=== PATIENT | female | born 1945 | race American Indian/Alaskan Native ===

== ENCOUNTER 2016-10-21 09:22 | Inpatient (IN) | payer OTHER, MEDICARE ==
[2016-10-21 09:35] VITALS: BMI 29.0
[2016-10-21] MEDS ORDERED: Thrombin Topical 5,000 IU Spray Kit ONE (12:52)
[2016-10-21] MEDS ORDERED: Absorbable Gelatin Sponge Size 100 ONE (12:52)
[2016-10-21] MEDS ORDERED: Bacitracin Ointment 30 GM TUBE ONE (12:52)
[2016-10-21] MEDS ORDERED: Bupivacaine 0.5% Inj(30mL) ONE (13:11)
[2016-10-21] MEDS ORDERED: Morphine 1 mg/ml preservative-free Inj(Duramorph) ONE (13:11)
[2016-10-21] MEDS ORDERED: EPINEPHrine 1 mg/ml (1:1000) Inj ONE (13:11)
[2016-10-21] MEDS ORDERED: Sodium Chloride 0.9% 20 ML IV ONE (13:11)
[2016-10-21] MEDS ORDERED: Propofol 10 mg/ml Inj (20 ML) ONE (13:21)
[2016-10-21] MEDS ORDERED: ePHEDrine 50 mg/ml Inj ONE (13:21)
[2016-10-21] MEDS ORDERED: Midazolam 2 MG/2 ML VIAL ONE (13:21)
[2016-10-21] MEDS ORDERED: Rocuronium 10 mg/ml (5 ml) ONE ×2 (13:21→14:22)
[2016-10-21] MEDS ORDERED: Lidocaine 4% (Laryng-O-Jet) Kit MM ONE (13:22)
[2016-10-21] MEDS ORDERED: Succinylcholine 200 mg/10 ml Inj IV ONE (13:22)
[2016-10-21] MEDS ORDERED: Lactated Ringer's 1,000 ML IV ONE ×3 (13:30→18:00)
[2016-10-21] MEDS ORDERED: Etomidate 20 mg/10ml Inj IV ONE (13:42)
--- NOTE | 2016-10-21 14:25 | RAD ---
PROCEDURE: Bilateral knee radiographs. HISTORY: Preop COMPARISON: None. FINDINGS: BONES: No acute fracture. Severe tricompartmental degenerative changes right knee. Less severe degenerative changes primarily affecting left medial compartment and patellofemoral joint. JOINTS: No evident loose bodies. JOINT EFFUSION: Unilateral, right suprapatellar effusion. OTHER FINDINGS: Bilateral varus deformity. IMPRESSION: Severe bilateral degenerative changes right greater than left.
[2016-10-21] MEDS ORDERED: Esmolol 100 mg/10ml Inj IV ONE (14:35)
[2016-10-21] MEDS ORDERED: Neostigmine Methylsulfate 3mg/3ml Syringe IV ONE (15:06)
[2016-10-21] MEDS ORDERED: Sodium Chloride 0.9% Inj (10mL) IV ONE (15:33)
--- NOTE | 2016-10-21 16:34 | PCM.SURG1 ---
Surgeon's Initial Post Op Note - Surgeon's Notes Surgeon: Dr. Charlie Ahn Education Consultant: Julianna Graham PA-C Type of Anesthesia: General Endo Anesthesia Administered By: Dr. Clinton/Dr. Price Pre-Operative Diagnosis: Advanced Osteoarthritis of Right Knee/Knee Contracture Operative Findings: see operative note Post-Operative Diagnosis: same Operation Performed: Right Total Knee Replacement (Exactech) Specimen/Specimens Removed: bone Estimated Blood Loss: EBL {In ML}: 100 Drains Used: No Drains Post-Op Condition: Good Date of Surgery/Procedure: 10/21/16 Time of Surgery/Procedure: 01:30
[2016-10-21] MEDS ORDERED: Lactated Ringer's 1,000 ML IV SCH (16:45)
[2016-10-21] MEDS ORDERED: DiphenhydrAMINE 50 mg/ml Inj IVP PRN (16:46)
[2016-10-21] MEDS ORDERED: HYDROmorphone 0.5 mg/0.5 ml ISec IVP PRN (16:46)
--- NOTE | 2016-10-21 18:31 | RAD ---
PROCEDURE: Right Knee Radiographs. HISTORY: post op right TKR COMPARISON: Preoperative study 10/21/2016 FINDINGS: BONES: Satisfactory position alignment of components right TKA. JOINTS: Expected status satisfactory postoperative findings. JOINT EFFUSION: Air/fluid identified in the suprapatellar space OTHER FINDINGS: None. IMPRESSION: Satisfactory postoperative status.
--- NOTE | 2016-10-21 20:46 | OP ---
PROCEDURE DATE: 10/21/2016 PROCEDURE DATE: 10/21/2016. ATTENDING SURGEON: Charlie Ahn MD METAL CUTTER: Julianna Graham PA-C PREOPERATIVE DIAGNOSIS: Right knee osteoarthritis. POSTOPERATIVE DIAGNOSIS: Right knee osteoarthritis. PROCEDURE: Right total knee replacement. IMPLANTS SIZE: Exactech size 2 femur, size 4 stemmed tibial baseplate, size 13-mm polyethylene inse rt, 32-mm patella button. ANESTHESIA TYPE: General. ESTIMATED BLOOD LOSS: 50 mL. COMPLICATIONS: None. HISTORY: Patient with prolonged history of right knee pain progressively getting worse despite exten sive conservative management, which included activity modification, injections, anti-inflammatory mod ification and physical therapy. X-rays had revealed advanced arthritis. Patient was indicated for to shay knee replacement due to continued pain and limited mobility. I had a detailed discussion with the patient in the office explaining the nature of the surgery, alternatives of surgery, risks and benef its, rehabilitation protocol and surgical markings. Risks of surgery include but not limited to cont inued pain, lack of motion, infection, vascular injury, DVT/PE, nerve injury including peroneal nerve dysfunction, reflex sympathetic dystrophy, compartment syndrome, unforeseen medical and/or anesthesi a complications, limb loss, and even . The patient expressed an understanding of the risks and possible benefits of the procedure, and is also aware of the alternatives to surgery. PROCEDURE: The patient was transported to the operating room and placed in the supine position, gene ral anesthesia was obtained and examined under anesthesia. Effusion 1+, flexion contracture of 20, f lexion of 90, stable to varus and valgus stress. Planned tibial cut was made with power saw, using extra-medullary guide, perpendicular to mechanical axis of the tibia. After the cut was made, the alignment was also checked and was found to be appropr iate. Next, the knee was placed into 90 degrees of flexion. A drill hole was made within the femora l notch anterior to PCL insertion for placement of intramedullary femoral khadra. Intramedullary femora l khadra was inserted within the femoral canal and planned distal femoral cut was made. After the cut, k nee was brought into full extension. Spacer blocks were used to check the extension balancing both in full extension and 30 degrees of flexion. It was found that a size 13-mm trial spacer block allowed full extension with symmetric varus and valgus balancing. Next we proceed with Patella resurfacing. Patella width was found to [place] Patella width was 22-mm. Using the free-hand technique the arthritic patella surface was resected. Patella was sized using the guide and it was noted that the patella button size was 32-mm Patella dome button would be appropria te for the patient. Next the size of femoral component was determined using the posterior referencing guide. It was note d that a size 2 femur would be appropriate for this patient without causing any significant notching. A 4 x 1 cutting block was placed and flexion gap balancing was checked. The flexion gap was found t o be symmetric to the extension gap. Anterior and posterior condyle, anterior and posterior chamfer c uts were made. Next, appropriate size box cut for femoral component was prepared using the guide. The femoral trial component was impacted onto the distal femur. Appropriate size tibial trial compone nt was also placed on the cut surface of the tibia. Using the drill and punch, keel for tibial implan t was prepared. Trial tibial tray was secured onto the tibia using pins. Different size trial polyeth ylene inserts were secured on to the trial tibial tray to critically assess the following parameters: Full range of motion, extension and flexion gap balancing, mid-flexion stability, anterior and poste rior drawer, and patellar tracking. All parameter were found to be satisfactory with a size 13-mm brent yethylene insert. During this procedure, I was assisted by Julianna Graham PA-C, who assisted in positioning the patient on the operating room table as well as transferring the patient from the operating room tabl e to the recovery room stretcher. In addition, Julianna Graham PA-C, assisted me during the a ctual operative procedure by positioning, protecting critical neurovascular structures, exposure of t he joint, and proper positioning of the implants. The presence of Julianna Graham PA-C, as my operative assistant health educator, was medically necessary to ensure the utmost safety of the patient in the pre, i ntra-, and post-operative periods. Due to the patient's previous procedure performed in this area, this procedure was more difficult pepe n a standard knee arthroscopy. This required extra time during prepping and draping, as well as an e xtended operative time. Because of the added complexity of the revision nature of this procedure, th e length of the case was prolonged by 20%. Charlie Ahn MD cc: [id number] TT: 10/21/2016 20:45:32 dn
[2016-10-22] MEDS: ceFAZolin 1 GM in Sodium Chloride 0.9% 100 ML IVPB SCH ×2 (01:25→12:04)
--- NOTE | 2016-10-22 07:05 | CP.PCM.HP ---
History of Present Illness - History of Present Illness History of Present Illness: Pt was admitted s/p right knee replacement surgery yesterday today is POD#1. Pt was seen and examined at bedside after physical therapy pain is controlled. does not have any complaints. denies sob, abdominal pain, numbness, weakness, tingling or changes in vision. She is able to move her toes and is put pressure on her right lower extremity Present on Admission - Present on Admission Any Indicators Present on Admission: No Review of Systems - Review of Systems All systems: reviewed and no additional remarkable complaints except Review of Systems: Per HPI Past Patient History - Past Medical History & Family History Past Medical History?: Yes - Past Social History Smoking Status: Former Smoker - CARDIAC Hx Cardiac Disorders: Yes Hx Hypertension: Yes Hx Peripheral Vascular Disease: Yes - PULMONARY Hx Respiratory Disorders: Yes Hx Emphysema: Yes - NEUROLOGICAL Hx Neurological Disorder: No - HEENT Hx HEENT Problems: Yes Hx Cataracts: Yes - RENAL Hx Chronic Kidney Disease: No - ENDOCRINE/METABOLIC Hx Endocrine Disorders: No - HEMATOLOGICAL/ONCOLOGICAL Hx Blood Disorders: No Hx Blood Transfusions: Yes Hx Blood Transfusion Reaction: No - INTEGUMENTARY Hx Dermatological Problems: No - MUSCULOSKELETAL/RHEUMATOLOGICAL Hx Musculoskeletal Disorders: Yes Hx Arthritis: Yes - GASTROINTESTINAL Hx Gastrointestinal Disorders: Yes Hx Gastritis: Yes - GENITOURINARY/GYNECOLOGICAL Hx Genitourinary Disorders: No - PSYCHIATRIC Hx Psychophysiologic Disorder: No - SURGICAL HISTORY Hx Surgeries: Yes Other/Comment: HYSTERECTOMY;CARPAL TUNNEL-RIGHT;PLASTIC SURGERY - ANESTHESIA Hx Anesthesia: Yes Hx Anesthesia Reactions: No Hx Malignant Hyperthermia: No Meds Allergies/Adverse Reactions: Allergies Allergy/AdvReac Type Severity Reaction Status Date / Time No Known Allergies Allergy Verified 09/12/16 15:45 Physical Exam - Constitutional Appears: Non-toxic, No Acute Distress - Head Exam Head Exam: NORMOCEPHALIC - Eye Exam Eye Exam: Normal appearance, PERRL Pupil Exam: NORMAL ACCOMODATION - ENT Exam ENT Exam: Mucous Membranes Moist - Neck Exam Neck exam: Positive for: Full Rom. Negative for: Tenderness, Thyromegaly - Respiratory Exam Respiratory Exam: Clear to Auscultation Bilateral, NORMAL BREATHING PATTERN. absent: Rhonchi, Wheezes - Cardiovascular Exam Cardiovascular Exam: REGULAR RHYTHM, +S1, +S2 - GI/Abdominal Exam GI & Abdominal Exam: Normal Bowel Sounds, Soft. absent: Tenderness - Extremities Exam Extremities exam: Negative for: calf tenderness, pedal edema Additional comments: right knee neatly dressed, no discharge noted - Neurological Exam Neurological exam: Alert, CN II-XII Intact, Oriented x3 Results - Vital Signs Recent Vital Signs: Last Vital Signs Temp 99 F 10/22/16 05:00 Pulse 108 H 10/22/16 05:00 Resp 16 10/22/16 05:00 BP 133/81 10/22/16 05:00 Pulse Ox 95 10/22/16 05:00 - Labs Result Diagrams: 10/22/16 09:05 10/22/16 09:05 Labs: Laboratory Results - last 24 hr 10/21/16 10/21/16 14:00 14:17 Blood Type O POSITIVE Blood Type Confirm O POSITIVE Antibody Screen Negative BBK History Checked No verified bt Assessment & Plan - Assessment and Plan (Free Text) Assessment: 70 y/o female with hypertension admitted s/p right knee replacement surgery POD# 1 Plan: 1. Right Knee replacement surgery POD#1 pain management as ordered ancef as ordered PT 2. Hypertension home medication HCTZ d/c'ed started on metroprolol 50BID 3. Diet- Heart Healthy 4. DVT prophylaxis-lovenox
[2016-10-22] MEDS: Oxycodone/Acetaminophen 5/325 mg Tab PO PRN ×2 (08:43→14:40)
[2016-10-22] MEDS: NIFEdipine 90 mg ER Tab PO SCH (08:47)
[2016-10-22 10:04] LABS: BASO % 0.3 % (0.0-2.0); HEMATOCRIT 27.6 % (34.0-47.0); LYMPH # 2.1 K/uL (1.0-4.3); LYMPH % 16.2 % (20.0-40.0); MEAN CELL VOLUME 74.7 fl (81.0-99.0); MEAN CORPUSCULAR HEMOGLOBIN 22.9 pg (27.0-31.0); MEAN CORPUSCULAR HGB CONC 30.7 g/dL (33.0-37.0); MEAN PLATELET VOLUME 10.2 fl (7.2-11.7); MONO % 7.8 % (0.0-10.0); NEUT # 9.8 K/uL (1.8-7.0); NEUT % 75.7 % (50.0-75.0); NRBC % 0.1 % (0.0-0.0); RED CELL DISTRIBUTION WIDTH 17.6 % (11.5-14.5)
[2016-10-22 10:09] LABS: CALCIUM 8.8 mg/dL (8.4-10.2); POTASSIUM 4.3 MMOL/L (3.6-5.0)
[2016-10-22] MEDS ORDERED: Metoprolol Succinate 50 mg XL Tab PO SCH (10:30)
--- NOTE | 2016-10-22 11:50 | CARD ---
APPROVED REPORT EKG Measurement Heart [id number] <Conclusion> Sinus tachycardia Minimal voltage criteria for LVH, may be normal variant Borderline ECG
[2016-10-23] MEDS: Oxycodone/Acetaminophen 5/325 mg Tab PO PRN ×3 (02:22→19:27)
[2016-10-23] MEDS: NIFEdipine 90 mg ER Tab PO SCH (09:32)
[2016-10-23 11:44] LABS: HEMATOCRIT 24.9 % (34.0-47.0); MEAN CELL VOLUME 74.7 fl (81.0-99.0); MEAN CORPUSCULAR HEMOGLOBIN 23.1 pg (27.0-31.0); MEAN CORPUSCULAR HGB CONC 30.9 g/dL (33.0-37.0); RED CELL DISTRIBUTION WIDTH 17.8 % (11.5-14.5); WHITE BLOOD COUNT 12.1 K/uL (4.8-10.8)
--- NOTE | 2016-10-23 11:49 | CARD ---
APPROVED REPORT EXAM: Two-dimensional and M-mode echocardiogram with Doppler and color Doppler. Other Information Quality : GoodRhythm : Tachycardia INDICATION Abnormal EKG/Arrhythmia 2D DIMENSIONS IVSd0.92 (0.7-1.1cm)LVDd3.75 (3.9-5.9cm) LVOT Diameter2.08 (1.8-2.4cm)PWd0.96 (0.7-1.1cm) IVSs1.71 (0.8-1.2cm)LVDs2.11 (2.5-4.0cm) FS (%) 43.6 %PWs1.41 (0.8-1.2cm) M-Mode DIMENSIONS Left Atrium (MM)3.24 (2.5-4.0cm)IVSd0.89 (0.7-1.1cm) Aortic Root3.28 (2.2-3.7cm)LVDd5.49 (4.0-5.6cm) Aortic Cusp Exc.1.82 (1.5-2.0cm)PWd0.93 (0.7-1.1cm) IVSs5.26 cmFS (%) 80 % LVDs1.09 (2.0-3.8cm)PWs0.46 cm Mitral Valve E/A ratio0.0 TDI E/Lateral E'0.0E/Medial E'0.0 Tricuspid Valve TR Peak [id number]/sRAP [id number] Peak Gr.29mmHg [id number] LEFT VENTRICLE The left ventricle is normal size. There is normal left ventricular wall thickness. The left ventricular function is normal. The left ventricular ejection fraction is within the normal range. The Ejection Fraction is 65-70%. There is normal LV segmental wall motion. The left ventricular diastolic function is normal. No left ventricle thrombus noted on this study. There is no mass noted in the left ventricle. RIGHT VENTRICLE The right ventricle is normal size. There is normal right ventricular wall thickness. The right ventricular systolic function is normal. ATRIA The left atrium size is normal. The right atrium size is normal. The interatrial septum is intact with no evidence for an atrial septal defect. AORTIC VALVE The aortic valve is normal in structure and function. No aortic regurgitation is present. There is no aortic valvular stenosis. There is no aortic valvular vegetation. MITRAL VALVE The mitral valve is normal in structure and function. There is no evidence of mitral valve prolapse. There is no mitral valve stenosis. There is no mitral valve regurgitation noted. TRICUSPID VALVE The tricuspid valve is normal in structure and function. There is no tricuspid valve regurgitation noted. There is no tricuspid valve prolapse or vegetation. There is no tricuspid valve stenosis. PULMONIC VALVE The pulmonary valve is normal in structure and function. There is no pulmonic valvular regurgitation. There is no pulmonic valvular stenosis. GREAT VESSELS The aortic root is normal in size. The ascending aorta is normal in size. The IVC is normal in size and collapses >50% with inspiration. PERICARDIAL EFFUSION The pericardium appears normal. There is no pleural effusion. <Conclusion> The left ventricle is normal size. The left ventricular function is normal. The left ventricular ejection fraction is within the normal range. The Ejection Fraction is 65-70%.
[2016-10-23 12:35] LABS: IRON 22 ug/dL (37-170)
--- NOTE | 2016-10-23 13:53 | CP.PCM.PN ---
Subjective - Date & Time of Evaluation Date of Evaluation: 10/23/16 Time of Evaluation: 09:50 - Subjective Subjective: Pt seen and examined at bedside, vitals reviewed. HR an BP improved on metoprolol. doing well, tolerating PT, pain better controlled. does not have any other issues Objective - Vital Signs/Intake and Output Vital Signs (last 24 hours): Temp Pulse Resp BP Pulse Ox 98 F 90 18 102/66 97 10/23/16 08:00 10/23/16 10:59 10/23/16 08:00 10/23/16 08:00 10/23/16 10:59 - Medications Medications: Current Medications Aspirin (Aspirin) 325 mg PO DAILY [facility] Last Admin: 10/23/16 09:37 Dose: 325 mg Celecoxib (Celebrex) 200 mg PO Q12 [facility] Last Admin: 10/23/16 09:32 Dose: 200 mg Docusate Sodium (Colace) 100 mg PO BID [facility] Last Admin: 10/23/16 09:32 Dose: 100 mg Ketorolac Tromethamine (Toradol) 15 mg IVP Q6 PRN PRN Reason: Pain, Mild (1-3) Metoprolol Tartrate (Lopressor) 50 mg PO Q12 [facility] Last Admin: 10/23/16 09:32 Dose: 50 mg Morphine Sulfate (Morphine) 4 mg IVP Q6 PRN PRN Reason: Pain, severe (8-10) Last Admin: 10/22/16 21:07 Dose: 4 mg Nifedipine (Procardia Xl) 90 mg PO DAILY [facility] Last Admin: 10/23/16 09:32 Dose: 90 mg Ondansetron HCl (Zofran Inj) 4 mg IVP Q6 PRN PRN Reason: Nausea/Vomiting Oxycodone/Acetaminophen (Percocet 5/325 Mg Tab) 2 tab PO Q4 PRN PRN Reason: Pain, moderate (4-7) Stop: 10/24/16 16:52 Last Admin: 10/23/16 09:37 Dose: 2 tab - Labs Labs: 10/23/16 11:20 10/22/16 09:05 - Constitutional Appears: Non-toxic, No Acute Distress - Head Exam Head Exam: NORMOCEPHALIC - Eye Exam Eye Exam: Normal appearance - ENT Exam ENT Exam: Mucous Membranes Moist - Respiratory Exam Respiratory Exam: Clear to Ausculation Bilateral, NORMAL BREATHING PATTERN. absent: Rhonchi, Wheezes - Cardiovascular Exam Cardiovascular Exam: REGULAR RHYTHM, +S1, +S2 - GI/Abdominal Exam GI & Abdominal Exam: Soft, Normal Bowel Sounds. absent: Tenderness - Extremities Exam Additional comments: right knee neatly wrapped, no discharge or drainage - Neurological Exam Neurological Exam: Alert, Awake, CN II-XII Intact, Oriented x3 Assessment and Plan - Assessment and Plan (Free Text) Assessment: 70 y/o female with hypertension admitted s/p right knee replacement surgery POD# 2 doing well Plan: 1. Right Knee replacement surgery POD#1 pain management as ordered ancef as ordered PT recommends TCU for rehab- awaiting placement 2. Hypertension home medication HCTZ d/c'ed started on metroprolol 50BID 3. Diet- Heart Healthy 4. DVT prophylaxis-lovenox
[2016-10-23 17:39] LABS: FOLATE 4.7 ng/mL
[2016-10-23] MEDS: Docusate-Senna 50 mg-8.6 mg Tab PO SCH (21:06)
[2016-10-24] MEDS: Oxycodone/Acetaminophen 5/325 mg Tab PO PRN (05:17)
[2016-10-24] MEDS ORDERED: Alum-Mag Hydrox-Simethicone Susp (30 mL) PO ONE (09:52)
[2016-10-24 10:46] LABS: MEAN CELL VOLUME 75.7 fl (81.0-99.0); MEAN CORPUSCULAR HEMOGLOBIN 22.9 pg (27.0-31.0); MEAN CORPUSCULAR HGB CONC 30.3 g/dL (33.0-37.0); RED CELL DISTRIBUTION WIDTH 17.6 % (11.5-14.5); WHITE BLOOD COUNT 10.2 K/uL (4.8-10.8)
[2016-10-24] MEDS ORDERED: EPOETIN ALFA 10,000 UNIT/ML ML SC SCH (13:00)
--- NOTE | 2016-10-24 17:18 | CP.PCM.PN ---
Subjective - Date & Time of Evaluation Date of Evaluation: 10/24/16 Time of Evaluation: 08:50 - Subjective Subjective: Pt seen and examined at bedside, does not have any complaints. pain well controlled. nurses notes reviewed Objective - Vital Signs/Intake and Output Vital Signs (last 24 hours): Temp Pulse Resp BP Pulse Ox 98.5 F 87 18 108/65 95 10/24/16 16:46 10/24/16 16:46 10/24/16 16:46 10/24/16 16:46 10/24/16 16:46 - Medications Medications: Current Medications Aspirin (Aspirin) 325 mg PO DAILY [facility] Last Admin: 10/24/16 09:17 Dose: 325 mg Celecoxib (Celebrex) 200 mg PO Q12 [facility] Last Admin: 10/24/16 09:15 Dose: 200 mg Docusate Sodium (Colace) 100 mg PO BID [facility] Last Admin: 10/24/16 17:00 Dose: 100 mg Epoetin Jaylon (Procrit) 10,000 unit SC MWF [facility] Last Admin: 10/24/16 11:30 Dose: 10,000 unit Ferrous Sulfate (Feosol) 325 mg PO TID [facility] Last Admin: 10/24/16 17:00 Dose: 325 mg Ketorolac Tromethamine (Toradol) 15 mg IVP Q6 PRN PRN Reason: Pain, Mild (1-3) Metoprolol Tartrate (Lopressor) 50 mg PO Q12 [facility] Last Admin: 10/24/16 08:47 Dose: 50 mg Morphine Sulfate (Morphine) 4 mg IVP Q6 PRN PRN Reason: Pain, severe (8-10) Last Admin: 10/24/16 17:08 Dose: 4 mg Nifedipine (Procardia Xl) 90 mg PO DAILY [facility] Last Admin: 10/23/16 09:32 Dose: 90 mg Ondansetron HCl (Zofran Inj) 4 mg IVP Q6 PRN PRN Reason: Nausea/Vomiting Pantoprazole Sodium (Protonix Ec Tab) 40 mg PO DAILY [facility] Senna/Docusate Sodium (Senokot S 50 Mg-8.6 Mg) 1 tab PO HS [facility] Last Admin: 10/23/16 21:06 Dose: 1 tab - Labs Labs: 10/24/16 10:25 10/22/16 09:05 - Constitutional Appears: Non-toxic, No Acute Distress - Head Exam Head Exam: NORMOCEPHALIC - Eye Exam Eye Exam: Normal appearance - ENT Exam ENT Exam: Mucous Membranes Moist - Respiratory Exam Respiratory Exam: Clear to Ausculation Bilateral, NORMAL BREATHING PATTERN. absent: Rhonchi, Wheezes - Cardiovascular Exam Cardiovascular Exam: REGULAR RHYTHM, +S1, +S2 - GI/Abdominal Exam GI & Abdominal Exam: Soft, Normal Bowel Sounds. absent: Tenderness - Extremities Exam Extremities Exam: absent: Calf Tenderness Additional comments: Knee neatly wrapped, no discharge noted - Neurological Exam Neurological Exam: Alert, Awake, CN II-XII Intact, Oriented x3 - Skin Skin Exam: Normal Color Assessment and Plan - Assessment and Plan (Free Text) Assessment: 70 y/o female with hypertension admitted s/p right knee replacement surgery POD# 3 doing well Plan: 1. Right Knee replacement surgery POD#3 pain management as ordered ancef as ordered PT recommends TCU for rehab- awaiting placement 2. Hypertension home medication HCTZ d/c'ed started on metroprolol 50BID 3. Diet- Heart Healthy 4. DVT prophylaxis-lovenox
[2016-10-24] MEDS: Pantoprazole 40 mg EC Tab PO SCH (17:34)
[2016-10-24] MEDS: Docusate-Senna 50 mg-8.6 mg Tab PO SCH (21:30)
[2016-10-24 21:31] VITALS: PULSE 95
[2016-10-25 02:17] VITALS: RESP 20; TEMP 98.3
[2016-10-25 08:01] LABS: HEMATOCRIT 24.6 % (34.0-47.0); MEAN CELL VOLUME 74.5 fl (81.0-99.0); MEAN CORPUSCULAR HEMOGLOBIN 22.7 pg (27.0-31.0); MEAN CORPUSCULAR HGB CONC 30.5 g/dL (33.0-37.0); RED CELL DISTRIBUTION WIDTH 17.1 % (11.5-14.5); WHITE BLOOD COUNT 9.7 K/uL (4.8-10.8)
[2016-10-25 08:36] VITALS: BP 126/68; O2SAT 97
[2016-10-25] MEDS: Pantoprazole 40 mg EC Tab PO SCH (09:23)
[2016-10-25] MEDS: NIFEdipine 90 mg ER Tab PO SCH ×2 (09:24→09:27)
[2016-10-25] MEDS ORDERED: EPOETIN ALFA 10,000 UNIT/ML ML SC ONE (10:10)
--- NOTE | 2016-10-25 10:22 | CP.PCM.DIS ---
Provider - Provider Date of Admission: 10/21/16 16:41 Attending physician: Andre Verma MD Primary care physician: Ailyn Villegas MD Hospital Course - Lab Results Lab Results: Most Recent Lab Values WBC 9.7 K/uL (4.8-10.8) 10/25/16 07:57 RBC 3.31 Mil/uL (3.80-5.20) L 10/25/16 07:57 Hgb 7.5 g/dL (12.0-16.0) L 10/25/16 07:57 Hct 24.6 % (34.0-47.0) L 10/25/16 07:57 MCV 74.5 fl (81.0-99.0) L 10/25/16 07:57 MCH 22.7 pg (27.0-31.0) L 10/25/16 07:57 MCHC 30.5 g/dL (33.0-37.0) L 10/25/16 07:57 RDW 17.1 % (11.5-14.5) H 10/25/16 07:57 Plt Count 208 K/uL (130-400) 10/25/16 07:57 MPV 10.2 fl (7.2-11.7) 10/22/16 09:05 Neut % (Auto) 75.7 % (50.0-75.0) H 10/22/16 09:05 Lymph % (Auto) 16.2 % (20.0-40.0) L 10/22/16 09:05 [place] % (Auto) 7.8 % (0.0-10.0) 10/22/16 09:05 Eos % (Auto) 0.0 % (0.0-4.0) 10/22/16 09:05 Baso % (Auto) 0.3 % (0.0-2.0) 10/22/16 09:05 Neut # 9.8 K/uL (1.8-7.0) H 10/22/16 09:05 Lymph # 2.1 K/uL (1.0-4.3) 10/22/16 09:05 [place] # 1.0 K/uL (0.0-0.8) H 10/22/16 09:05 Eos # 0.0 K/uL (0.0-0.7) 10/22/16 09:05 Baso # 0.0 K/uL (0.0-0.2) 10/22/16 09:05 Sodium 143 mmol/l (132-148) 10/22/16 09:05 Potassium 4.3 MMOL/L (3.6-5.0) 10/22/16 09:05 Chloride 102 mmol/L (98-107) 10/22/16 09:05 Carbon Dioxide 27 mmol/L (22-30) 10/22/16 09:05 Anion Gap 18 (10-20) 10/22/16 09:05 BUN 22 mg/dl (7-17) H 10/22/16 09:05 Creatinine 1.3 mg/dL (0.7-1.2) H 10/22/16 09:05 Est GFR ( Amer) 49 10/22/16 09:05 Est GFR (Non-Af Amer) 41 10/22/16 09:05 Random Glucose 206 mg/dL (65-105) H 10/22/16 09:05 Calcium 8.8 mg/dL (8.4-10.2) 10/22/16 09:05 Iron 22 ug/dL (37-170) L 10/23/16 11:20 TIBC 217 ug/dL (250-450) L 10/23/16 11:20 % Saturation 10 % (20-55) L 10/23/16 11:20 Ferritin 669.0 ng/mL 10/23/16 11:20 Vitamin B12 606 pg/mL (239-931) 10/23/16 11:20 Folate 4.7 ng/mL 10/23/16 11:20 Blood Type O POSITIVE 10/21/16 14:00 Blood Type Confirm O POSITIVE 10/21/16 14:17 Antibody Screen Negative 10/21/16 14:00 BBK History Checked No verified bt 10/21/16 14:00 - Hospital Course Hospital Course: This is a 70 y/o female admitted for right TKR. Discharge Exam - Head Exam Head Exam: NORMOCEPHALIC Discharge Plan - Follow Up Plan Condition: GOOD Disposition: HOME/ ROUTINE Instructions: Knee Replacement (DC) Referrals: Ailyn Villegas MD [Primary Care Provider] -
--- NOTE | 2016-10-30 16:05 | PQF ANEMIA ---
This form is a permanent part of the medical record DR. JULIANA ARELLANO: PATIENT'S HEMOGLOBIN ON ADMISSION WAS 8.5 AND AFTER SURGERY WAS 7.5 . ORDER WAS WRITTEN FOR EPOETIN SONIA (PROCRIT) ON 10/24/16. COULD YOU PLEASE CLARIFY IF PATIENT WAS BEING TREATED FOR ANEMIA. Clarification of your documentation is requested to better reflect the severity of illness and intensity of treatment of your patient. Indicators present X] Anemia [X] Drop in H&H from []8.5_ to []7.5__ [] Hypotension [] GI Bleed [] Transfusion(s) [] Acute bleed other sites [] Tachycardia [X] Surgical Procedure Blood Loss (expected not a complication) Other:[] Location in the medical record that reflects the above clinical findings: [] Treatment Provided: [] PHYSICIAN'S RESPONSE Based on your medical judgment of the clinical indicators outlined above, are you treating this patient for a known or suspected: [] Acute blood loss anemia [] Chronic blood loss anemia [] Acute on Chronic blood loss anemia [] Anemia due to malignancy [] Anemia due to chemotherapy or radiation therapy [] Anemia of Chronic Disease, please specify: [] [] Other, please indicate type of anemia []____ [] If Unable to Determine, please check the box, sign and date. Present On Admission (POA) Indicator: [] Present at the time of admission [] Not present at the time of admission [] Clinically Undetermined In responding to this query, please exercise your independent professional judgment. The fact that a question is asked does not imply that any particular answer is desired or expected. Thank you for your clarification on this documentation. If you have any questions please call:[ ] * Thank you, * BLANCA BHARDWAJ [[phone] general warehouse worker VIC[employer]E
== END 2016-10-25 12:05 | DRG 209 ==
LOC: H.OPSURG 09:22 → H.MEDSURG1 16:41
PROVIDERS: ADMIT Family Medicine; ATTEND Family Medicine
PROC: 0SRC0J9 Replacement of Right Knee Joint with Synthetic Substitute, Cemented, Open Approach (ICD-10-PCS; principal; 2016-10-21 12:45)
DX: M17.11 Unilateral primary osteoarthritis, right knee (principal); I10 Essential (primary) hypertension; M24.569 Contracture, unspecified knee; D64.9 Anemia, unspecified

== ENCOUNTER 2017-01-06 10:29 | Day surgery (SDC) | payer MEDICARE, OTHER ==
[2017-01-06 10:41] VITALS: BMI 27.4
[2017-01-06] MEDS ORDERED: Midazolam 2 MG/2 ML VIAL ONE (12:36)
[2017-01-06] MEDS ORDERED: Propofol 10 mg/ml Inj (20 ML) ONE (12:36)
[2017-01-06] MEDS ORDERED: Lactated Ringer's 1,000 ML IV SCH (13:37)
[2017-01-06] MEDS ORDERED: Lactated Ringer's 1,000 ML IV ONE (13:40)
--- NOTE | 2017-01-06 13:41 | PCM.SURG1 ---
Surgeon's Initial Post Op Note - Surgeon's Notes Surgeon: Charlie Ahn MD [place] Supervisor: None Type of Anesthesia: General Endo Pre-Operative Diagnosis: Right Knee Contracture s/p R TKR Operative Findings: See op report Post-Operative Diagnosis: Same as pre-op dx Operation Performed: Right Knee Manipulation Under Anesthesia Specimen/Specimens Removed: None Estimated Blood Loss: EBL {In ML}: 0 Date of Surgery/Procedure: 01/06/17 Time of Surgery/Procedure: 13:00
[2017-01-06] MEDS: HYDROmorphone 0.5 mg/0.5 ml ISec IVP PRN ×2 (13:42→13:57)
[2017-01-06 15:24] VITALS: BP 143/67; PULSE 94; RESP 18; TEMP 98; O2SAT 98
--- NOTE | 2017-01-06 15:55 | RAD ---
PROCEDURE: Right Knee Radiographs. HISTORY: post op COMPARISON: 10/21/2016. FINDINGS: BONES: Normal. No fracture. JOINTS: Normal. No osteoarthritis. JOINT EFFUSION: Suprapatellar effusion difficult to separate from adjacent soft tissue swelling. OTHER FINDINGS: None. IMPRESSION: Unremarkable right TKA. Postoperative findings include suprapatellar effusion and soft tissue swelling.
--- NOTE | 2017-01-06 16:57 | OP ---
PROCEDURE DATE: 01/06/2017 ATTENDING PHYSICIAN: Charlie Ahn MD [employer]OCKST[employer] FR[employer]KER: None. PREOPERATIVE DIAGNOSIS: Right knee stiffness, status post total knee replacement. POSTOPERATIVE DIAGNOSIS: Right knee stiffness, status post total knee replacement. PROCEDURE: Is right knee manipulation under anesthesia. ANESTHESIA TYPE: Was sedation. ESTIMATED BLOOD LOSS: Zero. COMPLICATIONS: None. HISTORY: The patient is a 71-year-old female who underwent total knee replacement. The patient's po stoperative course was complicated by stiffness. She, despite extensive physical therapy, range of m otion did not improve and I had recommended right knee manipulation under anesthesia. I reviewed the risks and benefits of the procedure with the patient in detail. The risks included, but not limited to, bleeding, infection, fractures, need for further procedure, among others. The patient fully und erstood the risks and benefits and opted to proceed. PROCEDURE: On the day of the procedure, the patient was admitted to the preop holding area. A later ality sheet was completed, confirming patient's right knee to be correct operative site, and informed consent was signed. The patient was brought into operating room table. She was given conscious sed ation, and with gentle traction the knee was flexed to nearly 115 degrees and full extension. The pa tient tolerated the procedure well. The patient was awakened from sedation. She was transferred to the stretcher and taken to the recove ry room. Her postop instructions included weightbearing as tolerated with full range of motion. There were no complications of the procedure. Charlie Ahn MD cc: [id number] TT: 01/06/2017 16:56:55 red
== END 2017-01-06 16:05 | disposition home or self-care (01) ==
LOC: H.OPSURG 10:29
PROVIDERS: ATTEND Orthopaedic Surgery
DX: M25.661 Stiffness of right knee, not elsewhere classified (principal); M25.561 Pain in right knee; I10 Essential (primary) hypertension; M19.90 Unspecified osteoarthritis, unspecified site; E05.90 Thyrotoxicosis, unspecified without thyrotoxic crisis or storm
CPT/HCPCS: 27570; 73560; J1170; J2001; J2250; J2704; J3010; J7120